=== PATIENT | female | born 1955 | race Caucasian/White ===

== ENCOUNTER 2018-11-25 05:24 | Emergency (ER) | payer BC, SELFPAY ==
[2018-11-25 05:25] VITALS: BP 144/86; PULSE 71; RESP 15; TEMP 36.9; O2SAT 97; BMI 29.2
--- NOTE | 2018-11-25 05:30 | EKG12_ITS ---
Test Reason : CP Blood Pressure : / mmHG Vent. Rate : 060 BPM Atrial Rate : 060 BPM P-R Int : 146 ms QRS Dur : 084 ms QT Int : 420 ms P-R-T Axes : 046 009 028 degrees QTc Int : 420 ms Normal sinus rhythm Possible Left atrial enlargement Cannot rule out Inferior infarct , age undetermined Abnormal ECG Confirmed by JASMIN HAQ, YU ([id number]), map editor IZA PIPER ([id number]) on 11/27/2018 11:09:35 AM Referred By: JIN Confirmed By:YU CASTELLANOS MD
--- NOTE | 2018-11-25 05:30 | RAD_ITS ---
STUDY: X-RAY CHEST REASON FOR EXAM: Female, 63 years old. Chest pain TECHNIQUE: 1 view COMPARISON: None. FINDINGS: The lungs are clear and expanded. There is no demonstrated pleural abnormality. Normal size heart. Normal mediastinum and angel. Normal visualized pulmonary arteries. Normal visualized aortic arch and descending thoracic aorta. Normal visualized thoracic spine. Normal visualized ribs, clavicles, and shoulders. There is no demonstrated abnormality of the visualized soft tissue structures of the upper abdomen. RAD/Chest 1 View (Portable) IMPRESSION: Normal x-ray examination of the chest. No acute findings in the lungs Electronically Signed: Fernando Glasgow MD at 5:54 EDT Tel , Service support ,
--- NOTE | 2018-11-25 05:30 | ED.VIS.GEN ---
History of Present Illness Chief Complaint: Chest Pain Informant: Patient Onset: Today Context: Sudden Onset Timing: Continuous Current Severity: Moderate Maximum Severity: Moderate Narrative: The patient presents to the emergency department with right shoulder pain that radiates to her chest. She states that from time to time, sharp pain in the right shoulder. She does have a history of bursitis. States she woke with pain in her right shoulder. States she was massaging her shoulder. Shortly thereafter, it radiated to her chest and she felt mildly short of breath. She denies any fevers or chills. She states she is never really had pain like this before with her history of bursitis. Patient has no history of coronary vascular disease. She is on no daily medications. She has a very remote smoking history. She states up until tonight, she felt fine. She denies any food intolerance. She denies any fevers or chills. Prior similar symptoms: No Recent Illness/Hospitalization: No Past Medical History - Allergies and Home Meds Allergies/Adverse Reactions: Allergies No Known Allergies Allergy (Verified 12/11/15 18:27) Primary Care Physician: Rui Hernandez DO [Primary Care Provider] - Prior records reviewed: Yes Past Medical History: None Surgical History: no surgical history Smoking Status: Former smoker Review of Systems General: Denies: Chills, Fever, Sweats Eyes: Denies: Visual changes - bilaterally, Diplopia ENT: Denies: Rhinorrhea, Sore throat Cardiovascular: Reports: Chest pain. Denies: Palpitations Respiratory: Denies: Dyspnea, Cough, Dyspnea on exertion Gastrointestinal: Denies: Abdominal pain, Nausea, Vomiting, Diarrhea, Melena, Hematochezia Genitourinary: Denies: Dysuria, Hematuria, Frequency Musculoskeletal: Reports: Myalgias. Denies: Back pain, Extremity Pain Skin: Denies: Rash, Wounds Neurological: Denies: Headache, Weakness, Numbness Physical Exam Vital Signs/Narrative: Vital Signs Temp Pulse Resp BP Pulse Ox 11/25/18 05:25 98.4 F 71 15 144/86 H 97 Inital Vital Signs reviewed: Yes General: Well nourished, Well developed, No Acute Distress Head: Normocephalic, Atraumatic Eyes: Perrl, EOMI ENT: Moist mucous membranes, No rhinorrhea Neck: Supple, Nontender Cardiovascular: Regular rate, Regular rhythm, No murmurs Respiratory: No distress, CTA bilaterally, Chest nontender Abdomen: Soft, Nontender, Nondistended, Normal bowel sounds Back: Nontender, Normal Inspection Extremities: Nontender, No edema Skin: Normal color, No rash Neurological: Alert, Oriented x3, Cranial nerves II-XII grossly intact, Normal Strength, Normal Sensation Psychological: Normal affect, Normal Mood Diagnostic/Tx/Re-eval Chest X-Ray - ED: 2 View, Normal, Heart, Lungs Clinical Impression(s) from Imaging Studies Chest X-Ray 11/25/18 05:30 IMPRESSION: Normal x-ray examination of the chest. No acute findings in the lungs Electronically Signed: Fernando Glasgow MD at 5:54 EDT Tel , Service support , Abnormal Lab Results 11/25/18 11/25/18 11/25/18 05:45 05:45 05:45 WBC 7.7 RBC 4.87 Hgb 15.4 H Hct 45.0 MCV 92.4 MCH 31.6 MCHC 34.2 RDW Std Deviation 41.6 RDW Coeff of Miguel Ángel 12.2 Plt Count 284 MPV 10.0 Immature Gran % (Auto) 0.100 Neut % (Auto) 63.6 Lymph % (Auto) 26.4 [place] % (Auto) 6.6 Eos % (Auto) 2.6 Baso % (Auto) 0.7 Absolute Neuts (auto) 4.9 Absolute Lymphs (auto) 2.03 Nucleated RBC % 0 D-Dimer Quant (PE/DVT) < 0.27 L Sodium 144 Potassium 3.7 Chloride 109 H Carbon Dioxide 28.0 Anion Gap 7 BUN 19 H Creatinine 0.89 Estim Creat Clear Calc 62.14 Est GFR (MDRD) Af Amer 82 Est GFR (MDRD) Non-Af 68 BUN/Creatinine Ratio 21.3 H Glucose 94 Calcium 8.9 Troponin I < 0.015 - Rhythm Strip Rhythm Strip: Sinus Rhythm Rate: 90 Ectopy: None - EKG Initial EKG Interpretation: Sinus Rhythm, No Acute Injury Pattern Prior: Unchanged - Medical Decision Making Patient presents to the emergency department with right shoulder pain that is since radiated to her chest. She was feeling mildly short of breath. EKG was done on patient arrival. There is no evidence of acute ischemia. Chest x-ray was obtained. This was unremarkable for acute process. The patient's d-dimer and cardiac enzymes are normal. On reevaluation, she is feeling improved. Patient is very low risk for coronary vascular disease, but has never really had pain like this before. I do feel that a repeat troponin pathway would be appropriate. The patient is agreeable with this plan of care. I do feel that if this is negative, the patient can safely be followed as an outpatient. She is comfortable with this plan of care. Impression thank you 1. Atypical chest pain ED Disposition - Plan for ED Patient: Instructions: CHEST PAIN, Uncertain Cause Prescriptions: Naproxen [Naprosyn] 500 mg PO BID PRN #20 tab Prescription Printed Referrals: Rui Hernandez DO [Primary Care Provider] -
[2018-11-25 05:35] VITALS: O2SAT 97
[2018-11-25] MEDS: Aspirin 81 MG TAB.CHEW 324 MG PO (05:36)
[2018-11-25] MEDS: 0.9% Normal Saline 1,000 ML 150 ML IV (05:43)
[2018-11-25 05:55] LABS: Absolute Lymphocyte Count 2.03 X10^3/uL (0.83-4.51); Absolute Neutrophil Count 4.9 X10^3/uL (2.0-7.7); Basophil# 0.05 X10^3/uL; Basophil% 0.7 % (0-1); Eosinophils% 2.6 % (0-5); Hemoglobin 15.4 g/dL (12.0-15.0); Lymphocyte # 2.03 X10^3/ul (4.0); Lymphocyte % 26.4 % (19-41); Mean Corp Hgb Conc 34.2 g/dL (32-36); Mean Corpuscular Hgb 31.6 pg (27.0-32.0); Mean Corpuscular Volume 92.4 fL (81-99); Monocyte# 0.51 X10^3/uL; Monocyte% 6.6 % (0-10); NRBC Flagged by Analyzer 0 % (0-5); Neutrophil # 4.88 X10^3/uL (2.7-7.7); Neutrophil % 63.6 % (47-70); Platelet Count 284 K/mm3 (150-450); RBC Distribution Width CV 12.2 % (11.6-14.6); RBC Distribution Width SD 41.6 fl (35.1-43.9); Red Blood Count 4.87 M/mm3 (4.2-5.4); White Blood Count 7.7 K/mm3 (4.4-11.0)
[2018-11-25 06:19] LABS: Anion Gap 7 (5-15); BUN 19 mg/dL (7-18); BUN/Creat Ratio 21.3 RATIO (10-20); Calcium,Total 8.9 mg/dL (8.5-10.1); Chloride 109 mmol/L (98-107); Creatinine, Serum 0.89 mg/dL (0.55-1.02); EST Glomerular Filtration Rate 68 mL/min (>60); Est Glom Filt Rate - Afr Amer 82 mL/min (>60); Estimated Creatinine Clearance 62.14 ml/min; Glucose 94 mg/dL (74-106); Potassium 3.7 mmol/L (3.5-5.1); Sodium Level 144 mmol/L (136-145)
[2018-11-25 07:07] LABS: D-Dimer Quantitative (DVT/PE) < 0.27 FEU/ug/m (0.27-0.49)
[2018-11-25 07:50] VITALS: BP 133/71; PULSE 59; RESP 15; O2SAT 97
[2018-11-25 09:04] VITALS: BP 146/78; PULSE 74; RESP 14; O2SAT 99
[2018-11-25 09:15] VITALS: BP 146/78; PULSE 74; RESP 18; O2SAT 99
== END 2018-11-25 09:16 | disposition home or self-care (01) ==
LOC: ED 05:52
PROVIDERS: Emergency Provider Emergency Medicine; Family Provider Student in an Organized Health Care Education/Training Program; PCP Student in an Organized Health Care Education/Training Program
DX: R07.89 Other chest pain (principal); M25.511 Pain in right shoulder; R06.02 Shortness of breath; M71.9 Bursopathy, unspecified; Z87.891 Personal history of nicotine dependence
CPT/HCPCS: 36415; 71045; 80048; 84484; 85025; 85379; 93005; 96360; 96361; 99285; J7030; A4216

== ENCOUNTER 2019-03-23 18:24 | Emergency (ER) | payer BC, SELFPAY ==
[2019-03-23 18:25] VITALS: BP 190/83; PULSE 83; RESP 16; TEMP 37.4; BMI 30.6
--- NOTE | 2019-03-23 20:20 | ED.VISSUMM ---
- ER Visit Summary Date of Service: 03/23/19 Chief Complaint: Right ear pain History of Present Illness: The patient is a 63 F who presents with right ear pain that began yesterday. Patient states her pain is sharp. Patient states the pain is localized to her right ear. Patient states she has been taking ibuprofen and using a heating pad with some relief. Patient denies any fevers or chills. Patient admits to recent cough. Patient denies any chest pain or shortness of breath. Patient denies any hearing changes. Physical Examination: Vital signs are stable. Patient is afebrile. Patient is in no acute distress. There is a mild effusion behind the right tympanic membrane. The left tympanic membrane is clear. Neck is supple. Trachea is midline. There is no JVD. Heart was regular rate and rhythm. Lungs are clear and equal bilaterally. Abdomen is soft and nontender. Cranial nerves II through XII are intact. There are no focal motor or sensory deficits noted. Emergency Department Course and Treatment: Patient was advised that this is most likely due to a viral upper respiratory infection and antibiotics are not indicated at this time. Patient was given a prescription for Flonase to help with the congestion. Patient was instructed to continue [id number] decongestants as needed. Patient was instructed to follow-up with her primary care physician in 5 to 7 days. Patient understood and was agreeable with the plan. All questions were answered. Disposition: Discharge home Impression: Right serous otitis media This note was generated with [employer] dictation software. It may contain incorrect words, spelling, and punctuation that were not noted in review of the chart prior to signing ED Disposition - Plan for ED Patient: Disposition: Home or Assisted Living Diagnosis: Serous otitis media of right ear with rupture of tympanic membrane Prescriptions: Fluticasone 0.05% [Flonase Nasal Rison] 1 spray NASAL DAILY #1 nasal.sry Prescription Printed Referrals: Rui Hernandez DO [Primary Care Provider] - 5-7 Days
[2019-03-23 20:32] VITALS: PULSE 66; RESP 18
== END 2019-03-23 20:33 | disposition home or self-care (01) ==
PROVIDERS: Emergency Provider Emergency Medicine; Family Provider Student in an Organized Health Care Education/Training Program; PCP Student in an Organized Health Care Education/Training Program
DX: H65.91 Unspecified nonsuppurative otitis media, right ear (principal); H72.91 Unspecified perforation of tympanic membrane, right ear
CPT/HCPCS: 99282